=== PATIENT | female | born 2005 | race Hispanic/Latino ===

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

== ENCOUNTER 2025-02-13 09:22 | Emergency (ER) | payer SELFPAY ==
[2025-02-13] MEDS ORDERED: HYDROcodone/Acetaminophen 5/325 mg Tablet ONE (10:31)
[2025-02-13] MEDS ORDERED: Boostrix 0.5 ML (Tdap) VIAL (>/=7 yrs of age) ONE (10:41)
[2025-02-13 10:50] LABS: BHCG - Serum Negative (NEGATIVE); Pregs Control Bar Appear? YES (CONTROL BAR)
[2025-02-13 10:51] LABS: Pregs Control Background? CLEAR/WHITE (CLR/WHITE)
== END 2025-02-13 12:52 | disposition home or self-care (01) ==
LOC: ERS 09:22
DX: S80.12XA Contusion of left lower leg, initial encounter (principal); M62.838 Other muscle spasm; R10.30 Lower abdominal pain, unspecified; V89.2XXA Person injured in unspecified motor-vehicle accident, traffic, initial encounter; W22.12XA Striking against or struck by front passenger side automobile airbag, initial encounter
CPT/HCPCS: 71045; 72125; 74177; 84703; 90471; 90715